=== PATIENT | female | born 1985 | race Caucasian/White ===

== ENCOUNTER 2024-01-07 21:33 | Emergency (ER) | payer MEDICAID, SELFPAY ==
[2024-01-07 21:37] VITALS: BP 111/76; PULSE 117; RESP 18; TEMP 36.6; O2SAT 97; BMI 23.4
[2024-01-07 22:13] VITALS: BP 103/78; PULSE 105; RESP 18; O2SAT 96
--- NOTE | 2024-01-07 22:22 | CTR_ITS ---
PROCEDURE INFORMATION: Exam: CT Abdomen And Pelvis With Contrast Exam date and time: 01/07/2024 10:50 PM Age: 38 years old Clinical indication: Nausea and vomiting; Abdominal pain; Patient HX: Epigastric pain with n/v/d. TECHNIQUE: Imaging protocol: Computed tomography of the abdomen and pelvis with contrast. Radiation optimization: All CT scans at this facility use at least one of these dose optimization techniques: automated exposure control; mA and/or kV adjustment per patient size (includes targeted exams where dose is matched to clinical indication); or iterative reconstruction. Contrast material: OMNI 350; Contrast volume: 80 ml; Contrast route: INTRAVENOUS (IV); COMPARISON: No relevant prior studies available. RADIATION DOSE METRICS: Total DLP (mGy-cm): 340.32 FINDINGS: Liver: Multiple subcentimeter hepatic hypodensities. Gallbladder and biliary ducts: Normal. No calcified stones. No ductal dilation. Pancreas: Normal. No ductal dilation. Spleen: Normal. No splenomegaly. Adrenal glands: Normal. No mass. Kidneys and ureters: Left-sided renal cysts. No hydronephrosis. Stomach and bowel: The stomach is distended with fluid. Distal gastric wall thickening related to underdistention versus gastritis. There is fluid throughout the large bowel which can be seen in the setting of a diarrheal state. Multiple loops of proximal small bowel demonstrates some wall thickening. No evidence of bowel obstruction. Appendix: Normal appendix. Intraperitoneal space: Unremarkable. No free air. No significant fluid collection. Vasculature: Unremarkable. No abdominal aortic aneurysm. Lymph nodes: Unremarkable. No enlarged lymph nodes. Urinary bladder: The urinary bladder is underdistended. Reproductive: Bilateral ovarian follicular changes. Bones/joints: Unremarkable. No acute fracture. Soft tissues: Unremarkable. CT/CT abdomen pelvis w con* [id number] IMPRESSION: 1. Multiple thickened proximal small bowel loops without evidence of bowel obstruction. Findings may relate to entero colitis. 2. Diarrheal state of the large bowel. 3. The stomach is distended with fluid and there is some distal gastric wall thickening which may be related to underdistention versus gastritis. COMMENTS: Consistent with the [employer]'s Incidental Findings Committee white paper (J Am Abilio Radiol 2018): Any incidental renal lesion less than 1 cm or classified as too small to characterize, or any incidental cystic renal lesion characterized as simple-appearing, is likely benign. No follow-up imaging is recommended for these lesions per consensus recommendations based on imaging criteria.
--- NOTE | 2024-01-07 22:42 | W.ED.NAVMDI ---
HPI - Nausea/Vomiting/Diarrhea General: Chief complaint: Nausea/Vomiting/Diarrhea Stated complaint: Possible Food Posion Time Seen by Provider: 01/07/24 21:37 History of Present Illness: Patient is a 38-year-old female that presents to the emergency department with abdominal cramping, nausea vomiting, and diarrhea. Onset of symptoms 1500 today. Patient reports she believes it is from bad egg nog. Patient is writhing around in bed. Associated nausea: Yes Associated symtoms: Reports nausea; Denies bloating, chest pain, dizziness, dysuria, fatigue, headache(s), malaise or palpitations Related Data Previous Rx's Medication Instructions Recorded pantoprazole 40 mg tablet,delayed 40 mg PO DAILY #10 tabs 01/07/24 release (Protonix) prochlorperazine maleate 5 mg 5 mg PO Q8H PRN nausea and 01/07/24 tablet (Compazine) vomiting 48 hours #10 tabs Allergies Allergy/AdvReac Type Severity Reaction Status Date / Time No Known Allergies Allergy Verified 01/07/24 21:42 Review of Systems General: Reports: 10 or more systems reviewed and unremarkable except in HPI and below Const: Denies: fever(s), chills, change in appetite, change in weight, fatigue or malaise Card: Denies: chest pain, palpitations, irregular heart rhythm, edema, dyspnea on exertion, orthopnea or leg pain with exertion Resp: Denies: dyspnea, productive cough, non-productive cough, wheezing, stridor or chest congestion GI: Reports: abdominal pain, nausea, vomiting, diarrhea and GI cramping; Denies: dysphagia, constipation, bloating or hematochezia : Denies: flank pain, difficulty voiding, dysuria, urinary frequency, urinary urgency, urinary hesitancy, oliguria or hematuria Musc: Denies: neck pain, back pain, extremity pain, joint pain, joint swelling, joint redness, joint warmth or muscle weakness Skin/Breast: Denies: rash, pruritus, erythema, photosensitivity or new lesions Neuro: Denies: headache(s), numbness in extremities, weakness in extremities, sensory changes, lack of coordination, difficulty walking, frequent falls, dizziness, confusion, Slurred speech present, difficulty communicating thoughts, seizure-like activity or involuntary movements Endo: Denies: polyuria, polydipsia or tired all the time Papito/Lymph: Denies: easy bruising or easy bleeding [facility] Female Reproductive History: Date of last menstrual period: 01/07/24 Physical Exam Const: COMMON NORMALS: no acute distress, patient oriented x3 and alert GENERAL APPEARANCE: cooperative ORIENTATION/CONSCIOUSNESS: Yes awake, Yes oriented to person, Yes oriented to place and Yes oriented to time Neck/C-Spine: COMMON NORMALS: full ROM GENERAL: Yes normal visual inspection Lymph: LYMPHATIC: no lymphadenopathy noted Chest: COMMONS NORMALS: normal inspection of the chest Breast/axilla inspection: Yes no chest deformity, asymmetry, normal contours, no nodules, masses, tenderness Resp: COMMON NORMALS: normal respiratory effort, No retractions, No use of accessory muscles and clear to auscultation bilaterally EFFORT & INSPECTION: Yes able to speak in complete sentences and Yes symmetric chest movement AUSCULTATION: clear to auscultation bilaterally Cardio: COMMON NORMALS: regular rate, regular rhythm and Peripheral pulses 2+ throughout RATE: regular rate RHYTHM: regular rhythm PERIPHERAL PULSES: Peripheral pulses 2+ throughout GI: COMMON NORMALS: Normal to inspection, nondistended, normoactive bowel sounds present, Soft to palpation, non-tender and No hepatosplenomegaly present INSPECTION: Yes normal to inspection AUSCULTATION: Yes normoactive bowel sounds PALPATION: Yes Soft to palpation and Yes No hepatosplenomegaly present RECTAL EXAM: deferred Extremity: COMMON NORMALS: normal to inspection GENERAL: Yes normal exam except as noted Neuro: COMMON NORMALS: patient oriented x3 SENSORIUM/ORIENTATION: Yes alert, Yes oriented to person, Yes oriented to place and Yes oriented to time CRANIAL NERVES: Yes CN normal except as noted Psych: COMMON NORMALS: mental status grossly normal, Normal thought process present, cooperative, activity/motor behavior normal, denies homicidal ideation and denies suicidal ideation THOUGHT PROCESS: Normal thought process present Skin: COMMON NORMALS: no rashes or lesions noted, no wounds and turgor normal GENERAL SKIN EXAM: no rashes or lesions noted and turgor normal Course Vital Signs: Vital signs: Vital Signs Temperature 97.9 F 01/07/24 21:37 Pulse Rate 105 H 01/07/24 22:13 Respiratory Rate 18 01/07/24 22:13 Blood Pressure 103/78 01/07/24 22:13 Pulse Oximetry 96 01/07/24 22:13 Oxygen Delivery Me thod Room Air 01/07/24 22:13 MDM - Nausea/Vomiting/Diarrhea Medical Decision Making Patient is a 38-year-old female that presents to the emergency department with nausea vomiting diarrhea and abdominal pain Differential diagnosis includes gastroenteritis, food poisoning, obstruction, pancreatitis, appendicitis, pyelonephritis, urinary tract infection. Patient underwent laboratory evaluation as well as diagnostic evaluation. Laboratory studies appear grossly stable. There is no leukocytosis, anemias, electrolyte abnormalities, liver dysfunction, renal dysfunction. Bilirubin was within normal limits and lipase is normal. Urinalysis revealed no evidence of urinary tract infection. Urine drug screen positive for amphetamines. Urine negative. The CT of the abdomen and pelvis with contrast revealed multiple thickened proximal small bowel loops without evidence of bowel obstructions diarrheal state of the large bowel. The stomach is distended with fluid there is distal gastric wall thickening which may be related to underdistention versus gastritis. I treated the patient with Compazine and she was much more comfortable. Going to put her on Protonix and Compazine at home. Answered all findings on the CT include renal cysts. But have her follow-up with her primary care doctor to evaluate this further Lab Data 01/07/24 22:40 01/07/24 22:40 Radiology Impressions Abdomen/Pelvis CT 01/07/24 22:22 IMPRESSION: 1. Multiple thickened proximal small bowel loops without evidence of bowel obstruction. Findings may relate to entero colitis. 2. Diarrheal state of the large bowel. 3. The stomach is distended with fluid and there is some distal gastric wall thickening which may be related to underdistention versus gastritis. COMMENTS: Consistent with the [employer]'s Incidental Findings Committee white paper (J Am Abilio Radiol 2018): Any incidental renal lesion less than 1 cm or classified as too small to characterize, or any incidental cystic renal lesion characterized as simple-appearing, is likely benign. No follow-up imaging is recommended for these lesions per consensus recommendations based on imaging criteria. Laboratory Results WBC 7.04 10^3/uL (3.29-11.43) 01/07/24 22:40 RBC 5.04 10^6/uL (3.85-5.65) 01/07/24 22:40 Hgb 15.20 g/dL (11.27-16.99) 01/07/24 22:40 Hct 46.7 % (36-47) 01/07/24 22:40 MCV 92.7 fl (85-98) 01/07/24 22:40 MCH 30.2 pg (27-33) 01/07/24 22:40 MCHC 32.5 g/dL (30-55) 01/07/24 22:40 RDW 12.7 % (12.1-15.1) 01/07/24 22:40 Plt Count 356 10^3/cmm (157-399) 01/07/24 22:40 MPV 8.8 fL (7.4-10.4) 01/07/24 22:40 Neut % (Auto) 90.5 % 01/07/24 22:40 Lymph % (Auto) 5.0 % 01/07/24 22:40 Bacon % (Auto) 3.3 % 01/07/24 22:40 Eos % (Auto) 0.6 % 01/07/24 22:40 Baso % (Auto) 0.3 % 01/07/24 22:40 Neut # (Auto) 6.38 10^3/uL (1.8-7.7) 01/07/24 22:40 Lymph # (Auto) 0.4 10^3/uL (0.8-4.8) L 01/07/24 22:40 Bacon # (Auto) 0.2 10^3/uL (0.2-0.9) 01/07/24 22:40 Eos # (Auto) 0.0 10^3/uL (0.0-0.8) 01/07/24 22:40 Baso # (Auto) 0.0 10^3/uL (0.0-0.1) 01/07/24 22:40 Nucleated RBC % (auto) 0 % 01/07/24 22:40 Nucleated RBCs # 0.0 /100WBC 01/07/24 22:40 Sodium 141 mmol/L (136-145) 01/07/24 22:40 Potassium 4.3 mmol/L (3.5-5.1) 01/07/24 22:40 Chloride 104 mmol/L (98-107) 01/07/24 22:40 Carbon Dioxide 26 mmol/L (22-29) 01/07/24 22:40 Anion Gap 15.3 (5-19) 01/07/24 22:40 BUN 16 mg/dL (6-20) 01/07/24 22:40 Creatinine 0.6 mg/dL (0.5-0.9) 01/07/24 22:40 GFR Calculation 110.7 mL/min (90-130) 01/07/24 22:40 Glucose 135 mg/dL (65-115) H 01/07/24 22:40 Calculated Osmolality 295 mOsm/kg (285-295) 01/07/24 22:40 Lactic Acid 1.7 mmol/L (0.5-2.2) 01/07/24 22:40 Calcium 8.7 mg/dL (8.5-10.5) 01/07/24 22:40 Total Bilirubin 0.2 mg/dL (0.15-1.2) 01/07/24 22:40 AST 12 U/L (0-32) 01/07/24 22:40 ALT 7 U/L (0-33) 01/07/24 22:40 Alkaline Phosphatase 100 U/L (35-105) 01/07/24 22:40 Total Protein 6.6 g/dL (6.6-8.7) 01/07/24 22:40 Albumin 4.2 g/dL (3.5-5.2) 01/07/24 22:40 Globulin 2.4 g/dL (1.3-4.6) 01/07/24 22:40 Lipase 37 U/L (13-60) 01/07/24 22:40 HCG, Qual Negative (Negative) 01/07/24 23:14 Urine Color Yellow (Yellow) 01/07/24 23:14 Urine Appearance Clear (CLEAR) 01/07/24 23:14 Urine pH 5.0 (5-7) 01/07/24 23:14 Ur Specific [place] 1.096 (1.005-1.030) H 01/07/24 23:14 Urine Protein Trace (Negative) A 01/07/24 23:14 Urine Glucose (UA) Negative (Normal) 01/07/24 23:14 Urine Ketones Negative (Negative) 01/07/24 23:14 Urine Blood Negative (Negative) 01/07/24 23:14 Urine Nitrate Negative (Negative) 01/07/24 23:14 Urine Bilirubin Negative (Negative) 01/07/24 23:14 Urine Urobilinogen 0.2 mg/dL (Negative) 01/07/24 23:14 Ur Leukocyte Esterase Negative (Negative) 01/07/24 23:14 Urine RBC 0-2 /hpf (0-2) 01/07/24 23:14 Urine WBC 6-10 /hpf (0-5) 01/07/24 23:14 Ur Squamous Epith Cells 0-5 /hpf (0-5) 01/07/24 23:14 Amorphous Sediment Not Reportable 01/07/24 23:14 Urine Bacteria Trace /hpf (NONE) 01/07/24 23:14 Hyaline Casts 0-4 /lpf H 01/07/24 23:14 Urine Opiates Screen Negative ng/mL (Negative) 01/07/24 23:14 Ur Barbiturates Screen Negative ng/mL (Negative) 01/07/24 23:14 Ur Phencyclidine Scrn Negative ng/mL (Negative) 01/07/24 23:14 Ur Amphetamines Screen Positive ng/mL (Negative) H 01/07/24 23:14 U Benzodiazepines Scrn Negative ng/mL (Negative) 01/07/24 23:14 Urine Cocaine Screen Negative ng/mL (Negative) 01/07/24 23:14 U Marijuana (THC) Screen Negative ng/mL (Negative) 01/07/24 23:14 All radiology interpretation(s) finalized by discharge Discharge Plan Discharge Patient Disposition: Home Clinical Impression: Gastroenteritis, Amphetamine use, Renal cyst Condition: Stable Prescriptions: New pantoprazole [Protonix] 40 mg tablet,delayed release (DR/EC) 40 mg PO DAILY Qty: 10 0RF prochlorperazine maleate [Compazine] 5 mg tablet 5 mg PO Q8H PRN (Reason: nausea and vomiting) 2 Days Qty: 10 0RF Discharge Orders: Discharge ED (Routine); Ordered 01/07/24 Ordered By: Jorge Alberto Daniels McTeeminoo Referrals: Adam Vora MD [Primary Care Provider] - Discharge Diet: Advance as tolerated Discharge Activity: Resume usual activity Patient Instructions: Dehydration (ED), Gastroenteritis (ED), Acute Nausea and Vomiting (ED), Opioid Safety, Pain Management Activity Restrictions/Additional Instructions: Incidental findings of renal cyst on the CT. You need to follow-up with your primary care doctor. These are typically benign but you will probably need repeat imaging. You have a large quantity of fluid with close small bowel and large bowel inflammation. Need to rest your GI tract. Eat very bland foods. Try to stick to fluids. I am giving you Compazine and Protonix. These medications will help with symptom management. We do not treat abdominal pain at home because we do not want to take more should something change. If we do not get better in the next 24 to 48 hours or you get worse, please return to the emergency department for further evaluation Coding Level of Care Code ED Heavy Duty Custodian for Luis Carlos Zelaya
[2024-01-07] MEDS: prochlorperazine 10 mg/2 mL Inj 5 MG IVP (22:44)
[2024-01-07 22:45] LABS: Basophils % 0.3 %; Eosinophils % 0.6 %; Hematocrit 46.7 % (36-47); Lymphocytes # 0.4 10^3/uL (0.8-4.8); Mean Corpuscular HGB Conc 32.5 g/dL (30-55); Mean Corpuscular Hemoglobin 30.2 pg (27-33); Mean Corpuscular Volume 92.7 fl (85-98); Mean Platelet Volume 8.8 fL (7.4-10.4); Monocytes # 0.2 10^3/uL (0.2-0.9); Monocytes % 3.3 %; Neutrophils # 6.38 10^3/uL (1.8-7.7); Neutrophils % 90.5 %; Nucleated Red Blood Cells % 0 %; Platelet Count 356 10^3/cmm (157-399); Red Blood Count 5.04 10^6/uL (3.85-5.65); Red Cell Distribution Width 12.7 % (12.1-15.1); White Blood Count 7.04 10^3/uL (3.29-11.43)
[2024-01-07] MEDS: iohexol 350 mg/mL 500 mL Btl (per mL) IV (22:49)
[2024-01-07] MEDS: sodium chloride 0.9% 1,000 ML 999 ML IV (23:02)
[2024-01-07 23:06] LABS: Alanine Aminotransferase 7 U/L (0-33); Albumin Level 4.2 g/dL (3.5-5.2); Alkaline Phosphatase 100 U/L (35-105); Anion Gap 15.3 (5-19); Aspartate Amino Transferase 12 U/L (0-32); Blood Urea Nitrogen 16 mg/dL (6-20); Calcium 8.7 mg/dL (8.5-10.5); Carbon Dioxide 26 mmol/L (22-29); Chloride 104 mmol/L (98-107); Creatinine Clr Calc Pharmacy 96.5545; Globulin 2.4 g/dL (1.3-4.6); Glomerular Filtration Rate 110.7 mL/min (90-130); Glucose 135 mg/dL (65-115); Lipase 37 U/L (13-60); Osmolality Calculated 295 mOsm/kg (285-295); Potassium 4.3 mmol/L (3.5-5.1); Sodium 141 mmol/L (136-145); Total Bilirubin 0.2 mg/dL (0.15-1.2); Total Protein 6.6 g/dL (6.6-8.7)
[2024-01-07 23:07] LABS: Lactic Sepsis W/Reflex 1.7 mmol/L (0.5-2.2)
[2024-01-07 23:22] LABS: HCG Qualitative Urine. Negative (Negative)
[2024-01-07 23:24] LABS: Bilirubin Urine Negative (Negative); Blood Urine Negative (Negative); Glucose Urine UA Negative (Normal); Ketones Urine Negative (Negative); Leukocyte Esterase Urine Negative (Negative); Nitrate Urine Negative (Negative); Protein Urine Trace (Negative); Urine Appearance Clear (CLEAR); Urine Color Yellow (Yellow); Urobilinogen Urine 0.2 mg/dL (Negative)
[2024-01-07 23:31] LABS: Add Urine Microscopic? YES; Bacteria Urine Trace /hpf; Hyaline Casts Urine 0-4 /lpf; RBC Urine 0-2 /hpf (0-2); Squamous Epithelial Cell Urine 0-5 /hpf (0-5)
[2024-01-07 23:32] LABS: Amphetamines Screen Urine Positive (Negative); Barbiturates Screen Urine Negative (Negative); Benzodiazepines Screen Urine Negative (Negative); Cocaine Screen Urine Negative (Negative); Opiate Screen Urine Negative (Negative); PCP Screen Urine Negative (Negative); THC Screen Urine Negative (Negative)
[2024-01-07 23:43] LABS: Specific Gravity, Urine 1.096 (1.005-1.030)
[2024-01-08] MEDS: prochlorperazine 10 mg Tablet 5 MG PO (00:39)
[2024-01-08] MEDS: pantoprazole DR 40 mg Tablet PO (00:39)
[2024-01-08 00:44] VITALS: BP 83/58; PULSE 128; RESP 14; O2SAT 95
== END 2024-01-08 00:46 | disposition home or self-care (01) ==
PROVIDERS: Emergency Provider Nurse Practitioner; PCP Family Medicine
DX: K52.9 Noninfective gastroenteritis and colitis, unspecified (principal); F15.90 Other stimulant use, unspecified, uncomplicated; N28.1 Cyst of kidney, acquired
CPT/HCPCS: 36415; 74177; 80053; 80306; 81001; 81025; 83605; 83690; 85025; 96374; 99285; J0780; J7030; Q0164